=== PATIENT | male | born 1965 | race Caucasian/White ===

== ENCOUNTER 2017-07-20 12:38 | Emergency (ER) | payer MEDICAID ==
--- NOTE | 2017-07-20 13:48 | ED Physician Documentation ---
PD HPI DYSPNEA - Stated complaint Stated Complaint: SOA - Chief complaint Chief Complaint: Resp - History obtained from History obtained from: Patient - History of Present Illness Timing - onset: How many days ago (2-3 days of cough and worsening breathing.) Timing - onset during: Rest, Light activity Timing - duration: Days Timing - details: Gradual onset, Still present Inciting event(s): URI. No: Out of meds, Allergic rxn/anaphylaxis Improved by: No: Inhaler/neb Worsened by: Exertion, Coughing Associated symptoms: Cough. No: Fever, Palpitations Similar symptoms before: Diagnosis (copd with occasional exacerbations.) Recently seen: Not recently seen Review of Systems Constitutional: reports: Chills, Myalgias. denies: Fever Nose: reports: Rhinorrhea / runny nose, Congestion Throat: reports: Sore throat Cardiac: denies: Chest pain / pressure, Palpitations Respiratory: reports: Cough. denies: Dyspnea, Wheezing GI: denies: Abdominal Pain, Nausea, Vomiting Skin: denies: Rash, Lesions PD PAST MEDICAL HISTORY - Past Medical History Past Medical History: Yes Cardiovascular: Hypertension Respiratory: COPD - Past Surgical History Past Surgical History: Yes General: Appendectomy - Present Medications Home Medications: Ambulatory Orders Medication Instructions Recorded Confirmed Albuterol 2.5 mg INH Q4H PRN #30 neb 07/20/17 Benzonatate [Tessalon] 100 mg PO TID PRN #25 capsule 07/20/17 Budesonide/Formoterol Fumarate 1 applic INH DAILY 07/20/17 07/20/17 [Symbicort 160-4.5 Mcg Inhaler] Dexamethasone [Decadron] 4 mg PO DAILY #5 tablet 07/20/17 Doxycycline Monohydrate 100 mg PO BID #14 tablet 07/20/17 Fluticasone 44 Mcg [Flovent] 1 inhaler IN QID 07/20/17 07/20/17 Lisinopril 1 tab PO DAILY 07/20/17 07/20/17 - Allergies Allergies/Adverse Reactions: Allergies Allergy/AdvReac Type Severity Reaction Status Date / Time Penicillins Allergy Anaphylaxis Verified 07/20/17 13:07 - Social History Does the pt smoke?: Yes Smoking Status: Current every day smoker Does the pt drink ETOH?: Yes Does the pt have substance abuse?: Yes Substance Use and Type: Marijuana - Immunizations Immunizations are current?: No Immunizations: TDAP >10years/unknown, Other immun current Results - Vitals Vitals: Oxygen O2 Source Room air - EKG (time done) 12:54 Rate: Rate (enter#) (81) Rhythm: NSR [place]: Normal Intervals: Normal [place] Ischemia: Normal ST segments, ST elevation c/w ischemia (minimally in lead III only. No reciprocal nor ischemic changes. ). No: ST depression - Labs Labs: Laboratory Tests 07/20/17 07/20/17 07/20/17 14:25 14:25 14:25 WBC 7.3 RBC 5.24 Hgb 17.2 Hct 50.7 MCV 96.6 H MCH 32.8 H MCHC 33.9 RDW 14.1 Plt Count 175 MPV 8.4 Neut # 4.6 Lymph # 1.7 Cameron # 0.9 Eos # 0.0 Baso # 0.1 Absolute Nucleated RBC 0.00 Nucleated RBC % 0.0 Sodium 133 L Potassium 4.1 Chloride 100 L Carbon Dioxide 24 Anion Gap 9.0 BUN 12 Creatinine 0.8 Estimated GFR (MDRD) 101 Glucose 100 Calcium 9.6 Total Bilirubin 0.8 AST 25 ALT 20 Alkaline Phosphatase 64 Troponin I B-Natriuretic Peptide 10 Total Protein 7.7 Albumin 4.4 Globulin 3.3 Albumin/Globulin Ratio 1.3 Lipase 114 H 07/20/17 14:25 WBC RBC Hgb Hct MCV MCH MCHC RDW Plt Count MPV Neut # Lymph # Cameron # Eos # Baso # Absolute Nucleated RBC Nucleated RBC % Sodium Potassium Chloride Carbon Dioxide Anion Gap BUN Creatinine Estimated GFR (MDRD) Glucose Calcium Total Bilirubin AST ALT Alkaline Phosphatase Troponin I < 0.04 B-Natriuretic Peptide Total Protein Albumin Globulin Albumin/Globulin Ratio Lipase - Rads (name of study) chest Radiology: Prelim report reviewed, EMP read contemporaneously (no infiltrates. hyperexpanded some. ) PD MEDICAL DECISION MAKING - ED course Complexity details: reviewed results, re-evaluated patient (doing better with nebs. He is breathing omfortably with still some wheezes expiratory. No work of breathing. Sats are good. He would be comfortable heading home with meds. ), considered differential, d/w patient Departure - Departure Disposition: 01 Home, Self Care Clinical Impression: COPD with acute exacerbation Upper respiratory infection Qualifiers: URI type: unspecified URI Qualified Code(s): J06.9 - Acute upper respiratory infection, unspecified Condition: Stable Record reviewed to determine appropriate education?: Yes Instructions: ED Upper Resp Infec Abx Tx, ED COPD Flare Follow-Up: [facility] [Provider Group] [facility] [Provider Group] Prescriptions: Albuterol 2.5 mg INH Q4H PRN #30 neb PRN Reason: Wheezing Benzonatate [Tessalon] 100 mg PO TID PRN #25 capsule PRN Reason: Cough Dexamethasone [Decadron] 4 mg PO DAILY #5 tablet Doxycycline Monohydrate 100 mg PO BID #14 tablet Comments: Stay well-hydrated. Decadron steroid daily for 5 more days. Tessalon if needed for cough. Doxycycline antibiotic twice daily for a week. Recheck if not improving over the next several days. Discharge Date/Time: 07/20/17 15:56
[2017-07-20] MEDS ORDERED: IPRATROPIUM/ALBUTEROL 3 ML NEB INH STA (14:06)
[2017-07-20] MEDS ORDERED: BENZONATATE 100 MG CAPSULE PO STA (14:07)
[2017-07-20] MEDS ORDERED: DEXAMETHASONE 10 MG/ML VIAL PO STA (14:07)
[2017-07-20 14:31] LABS: BASOPHILS # (AUTO) 0.1 10^3/uL (0.0-0.1); BASOPHILS % (AUTO) 0.8 %; EOSINOPHILS % (AUTO) 0.2 %; HGB - HEMOGLOBIN 17.2 g/dL (14.0-18.0); LYMPHOCYTES # (AUTO) 1.7 10^3/uL (1.5-3.5); LYMPHOCYTES % (AUTO) 23.1 %; MEAN CORPUSCULAR HEMOGLOBIN 32.8 pg (27.0-31.0); MEAN CORPUSCULAR HGB CONC 33.9 g/dL (32.0-36.0); MEAN CORPUSCULAR VOLUME 96.6 fL (80.0-94.0); MEAN PLATELET VOLUME 8.4 fL (7.4-11.4); MONOCYTES # (AUTO) 0.9 10^3/uL (0.0-1.0); MONOCYTES % (AUTO) 12.4 %; NEUTROPHILS # (AUTO) 4.6 10^3/uL (1.5-6.6); NEUTROPHILS % (AUTO) 63.5 %; PLT - PLATELET COUNT 175 10^3/uL (130-450); RED BLOOD COUNT 5.24 10^6/uL (4.70-6.10); RED CELL DISTRIBUTION WIDTH 14.1 % (12.0-15.0); WHITE BLOOD COUNT 7.3 x10^3/uL (4.8-10.8)
[2017-07-20] MEDS ORDERED: CHERRY SYRUP 10 ML UDC PO ONE (14:33)
--- NOTE | 2017-07-20 14:34 | XRAY Report ---
EXAM: CHEST RADIOGRAPHY EXAM DATE: 07/20/2017 02:19 PM. CLINICAL HISTORY: Chest pain left sided. COMPARISON: None. TECHNIQUE: 2 views. FINDINGS: Lungs/Pleura: No focal opacities evident. No pleural effusion. No pneumothorax. Normal volumes. Mediastinum: Heart and mediastinal contours are unremarkable. Other: Anterior wedging of a few lower thoracic vertebral bodies may represent sequelae of degenerati ve change versus age-indeterminate compression fractures. IMPRESSION: 1. No radiographic evidence for acute cardiopulmonary process. 2. Anterior wedging of a few lower thoracic vertebral bodies could represent sequelae of degenerative change versus age-indeterminate compression fractures. Correlation with focal symptoms is krzysztof GALEANA Referring Provider Line: [phone] SITE ID: [id number]
[2017-07-20 15:00] LABS: ALBUMIN 4.4 g/dL (3.2-5.5); ALBUMIN/GLOBULIN RATIO 1.3 (1.0-2.2); BILIRUBIN,TOTAL 0.8 mg/dL (0.2-1.0); CALCIUM 9.6 mg/dL (8.5-10.3); CREATININE 0.8 mg/dL (0.6-1.2); TOTAL PROTEIN 7.7 g/dL (6.7-8.2)
[2017-07-20] MEDS ORDERED: DOXYCYCLINE 100 MG TABLET PO STA (15:02)
[2017-07-20] MEDS ORDERED: ALBUTEROL NEB 2.5 MG/3 ML INH STA (15:02)
[2017-07-20 15:38] VITALS: BP 124/85
== END 2017-07-20 15:56 | disposition home or self-care (01) ==
LOC: ED 12:38
DX: J44.1 Chronic obstructive pulmonary disease with (acute) exacerbation (principal); J06.9 Acute upper respiratory infection, unspecified; I10 Essential (primary) hypertension; F17.200 Nicotine dependence, unspecified, uncomplicated
CPT/HCPCS: 36415; 71046; 80053; 83690; 83880; 84484; 85025; 93005; 94640; 99283; 99284; A9270